=== PATIENT | female | born 1995 | race Two or more races ===

== ENCOUNTER 2019-11-01 09:21 | Outpatient (CLI) | payer BC, OTHER ==
[2019-11-01 10:04] LABS: APPEARANCE,URINE SLIGHTLY-CLOUDY; BILIRUBIN,URINE NEGATIVE (NEGATIVE); COLOR,URINE YELLOW; GLUCOSE, URINE NEGATIVE (NEGATIVE); KETONES,URINE NEGATIVE (NEGATIVE); LEUKOCYTE ESTERASE,URINE MODERATE (NEGATIVE); NITRITE,URINE NEGATIVE (NEGATIVE); PROTEIN,URINE 100 mg/dL (NEGATIVE); URINE SPECIFIC GRAVITY 1.013; UROBILINOGEN,URINE NEGATIVE mg/dL (<2.0)
[2019-11-01 10:19] LABS: UR PRO/CREAT RATIO RESULT 0.8 mg/mg (0.0-0.2); URINE CREATININE 117.4 mg/dL (16-327); URINE PROTEIN 90.2 mg/dL (<12)
[2019-11-01 10:29] LABS: URINE AMPHETAMINES SCREEN NEGATIVE; URINE BARBITURATES SCREEN NEGATIVE; URINE BENZODIAZEPINES SCREEN NEGATIVE; URINE COCAINE SCREEN NEGATIVE; URINE MARIJUANA (THC) SCREEN NEGATIVE; URINE METHADONE SCREEN NEGATIVE; URINE PHENCYCLIDINE SCREEN NEGATIVE
[2019-11-01 10:54] LABS: ABSOLUTE EOSINOPHILS # (AUTO) 0.3 10^3/uL (0.0-0.6); ABSOLUTE LYMPHOCYTES (AUTO) 1.3 10^3/uL (0.5-4.7); ABSOLUTE MONOCYTES (AUTO) 0.7 10^3/uL (0.1-1.4); ABSOLUTE NEUT (AUTO) 7.4 10^3/uL (1.7-8.2); BASOPHILS % (AUTO) 0.5 % (0-2); EOSINOPHILS % (AUTO) 3.4 % (0-6); HEMATOCRIT 36.3 % (36.0-47.0); HEMOGLOBIN 12.7 g/dL (12.0-15.5); LYMPHOCYTES % (AUTO) 13.4 % (13-45); MEAN CORPUSCULAR HEMOGLOBIN 30.4 pg (27.0-33.4); MEAN CORPUSCULAR VOLUME 87 fl (80-97); MONOCYTES % (AUTO) 7.2 % (3-13); PLATELET COUNT 242 10^3/uL (150-450); RED BLOOD COUNT 4.18 10^6/uL (3.72-5.28); SEGMENTED NEUTROPHILS % (AUTO) 75.5 % (42-78); TOTAL CELLS COUNTED % (AUTO) 100 %; WHITE BLOOD COUNT 9.8 10^3/uL (4.0-10.5)
[2019-11-01 11:06] LABS: ALBUMIN 2.8 g/dL (3.5-5.0); ALKALINE PHOSPHATASE 141 U/L (38-126); ANION GAP 5 (5-19); ASPARTATE AMINO TRANSFERASE 19 U/L (14-36); BILIRUBIN,TOTAL 0.3 mg/dL (0.2-1.3); BLOOD UREA NITROGEN 6 mg/dL (7-20); CALCIUM 8.5 mg/dL (8.4-10.2); CARBON DIOXIDE 20 mmol/L (22-30); CHLORIDE 108 mmol/L (98-107); GLUCOSE 80 mg/dL (75-110); POTASSIUM 3.8 mmol/L (3.6-5.0); TOTAL PROTEIN 5.8 g/dL (6.3-8.2); URIC ACID 4.7 mg/dL (2.5-6.2)
--- NOTE | 2019-11-01 11:38 | Non Stress Test Report ---
Non Stress Test Datetime Report Generated by CPN: 11/01/2019 11:38 DEMOGRAPHIC EGA NST: 33.1 INDICATION Indication for Study (NST) Other: IUP at 33.1; PreE workup VITAL SIGNS Temperature - NST: 98.1 Pulse - NST: 75 RESP - NST: 18 NBPSYS NST: 121 NBPDIA NST: 63 MONITORING Monitor Explained: Monitor Explained; Test Explained; Patient Verbalized Understanding Time on Monitor: 11/01/2019 09:46 Time off Monitor: 11/01/2019 11:30 NST Duration: 104 NST INTERVENTIONS NST Interventions: PO Hydration Physician Notified NST: P. Cancino, CNM BABY A: [id number] BABY A Movement : Present Contraction Frequency : 0 FHR Baseline : 140 Accelerations : 15X15 Decelerations : None Variability : Moderate 6-25bpm NST Review: Meets Criteria for Reactive NST NST Review and Verified By : Carissa Roblero RN NST Results: Reactive NST REPORT Report Trigger: Send Report
== END 2019-11-01 11:40 | disposition home or self-care (01) ==
LOC: LC 09:21
PROVIDERS: ATTEND Obstetrics & Gynecology Gynecology
DX: O12.13 Gestational proteinuria, third trimester (principal); Z3A.33 33 weeks gestation of pregnancy; Z02.83 Encounter for blood-alcohol and blood-drug test
CPT/HCPCS: 36415; 80053; 80307; 81001; 82570; 83615; 84156; 84550; 85025

== ENCOUNTER 2019-11-02 14:04 | Inpatient (IN) | payer BC, OTHER ==
[2019-11-02] MEDS ORDERED: ACETAMINOPHEN WITH CODEINE #3 TABLET ONE (14:30)
[2019-11-02] MEDS ORDERED: RINGERS SOLUTION,LACTATED 1,000 ML IV ONE (14:35)
[2019-11-02] MEDS ORDERED: BETAMET ACET/BETAMET NA INJ 6 MG/1 ML ONE (14:37)
[2019-11-02] MEDS ORDERED: ACETAMINOPHEN WITH CODEINE #3 TABLET PO PRN (14:37)
[2019-11-02 15:23] LABS: ABSOLUTE EOSINOPHILS # (AUTO) 0.2 10^3/uL (0.0-0.6); ABSOLUTE LYMPHOCYTES (AUTO) 1.3 10^3/uL (0.5-4.7); ABSOLUTE MONOCYTES (AUTO) 0.8 10^3/uL (0.1-1.4); ABSOLUTE NEUT (AUTO) 7.8 10^3/uL (1.7-8.2); BASOPHILS % (AUTO) 0.4 % (0-2); EOSINOPHILS % (AUTO) 2.3 % (0-6); HEMATOCRIT 36.7 % (36.0-47.0); HEMOGLOBIN 12.7 g/dL (12.0-15.5); LYMPHOCYTES % (AUTO) 12.8 % (13-45); MEAN CORPUSCULAR HEMOGLOBIN 30.1 pg (27.0-33.4); MEAN CORPUSCULAR HGB CONC 34.5 g/dL (32.0-36.0); MEAN CORPUSCULAR VOLUME 87 fl (80-97); MONOCYTES % (AUTO) 7.6 % (3-13); PLATELET COUNT 269 10^3/uL (150-450); SEGMENTED NEUTROPHILS % (AUTO) 76.9 % (42-78); TOTAL CELLS COUNTED % (AUTO) 100 %; WHITE BLOOD COUNT 10.1 10^3/uL (4.0-10.5)
[2019-11-02 15:29] LABS: URINE AMPHETAMINES SCREEN NEGATIVE; URINE BARBITURATES SCREEN NEGATIVE; URINE BENZODIAZEPINES SCREEN NEGATIVE; URINE COCAINE SCREEN NEGATIVE; URINE MARIJUANA (THC) SCREEN NEGATIVE; URINE METHADONE SCREEN NEGATIVE; URINE PHENCYCLIDINE SCREEN NEGATIVE
[2019-11-02 15:43] LABS: ALBUMIN 3.1 g/dL (3.5-5.0); ALKALINE PHOSPHATASE 160 U/L (38-126); ANION GAP 5 (5-19); ASPARTATE AMINO TRANSFERASE 19 U/L (14-36); BILIRUBIN,TOTAL 0.3 mg/dL (0.2-1.3); BLOOD UREA NITROGEN 7 mg/dL (7-20); CALCIUM 8.7 mg/dL (8.4-10.2); CARBON DIOXIDE 20 mmol/L (22-30); CHLORIDE 108 mmol/L (98-107); GLUCOSE 80 mg/dL (75-110); POTASSIUM 3.8 mmol/L (3.6-5.0); TOTAL PROTEIN 5.9 g/dL (6.3-8.2); URIC ACID 4.6 mg/dL (2.5-6.2)
--- NOTE | 2019-11-02 15:52 | Admission Physical ---
Datetime Report Generated by CPN: 11/02/2019 15:52 CURRENT ADMISSION Chief Complaint: Signs/Symptoms Gestational HTN; Sent from OB Office for Evaluation and Treatment - Please Specify Indication for Induction: Not Applicable Admit Impression : , Intrauterine ; No Active Labor; Observation/Evaluation; Obstetrical Complication Admit Plan: Admit to Unit; Observation/Evaluation Admit Plan- Other: sent from [facility], pt was seen yesterday on L_D, completed a 24*urine and f/u at the clinic today with c/o headache ALLERGIES Medication Allergies: No Medication Allergies: No Known Allergies (11/02/2019) Latex: No Latex Allergies Food Allergies: n/a Environmental Allergies: n/a OBSTETRICAL HISTORY EDC: 12/19/2019 00:00 : 1 Para: 0 Term: 0 : 0 SAB: 0 IAB: 0 Livin Cesareans: 0 VBACs: 0 Gestational Diabetes: No Rh Sensitization: No Incompetent Cervix: No GENEVIEVE: No Infertility: No ART Treatment: No Uterine Anomaly: No IUGR: No Hx Previous C/S: No Macrosomia: No Hx Loss/Stillborn: No PIH: No Hx : No Placenta Previa/Abruption: No Depression/PP Depression: No PTL/PROM: No Post Hemorrhage: No Current Procedures: Ultrasound Obstetrical History Comments: G1- current SEE RECORDS Alcohol: No Marijuana : No Cocaine: No Other Illicit Drugs: No Cigarettes: Never Smoker. [id number] MEDICAL HISTORY Diabetes: No Blood Transfusion: No Pulmonary Disease (Asthma, TB): No Breast Disease: No Hypertension: Yes Delivery Driver Surgery: No Heart Disease: No Hosp/Surgery: Yes Autoimmune Disorder: No Anesthetic Complications: No Kidney Disease: No Abnormal Pap Smear: No Neuro/Epilepsy: No Psychiatric Disorders: No Other Medical Diseases: No Hepatitis/Liver Disease: No Significant Family History: No Varicosities/Phlebitis: No Trauma/Violence : No Thyroid Dysfunction: No Medical History Comments: herniated disc, kidney stones INFECTIOUS HISTORY Gonorrhea: No Genital Herpes: No Chlamydia: No Tuberculosis: No Syphilis: No Hepatitis: No HIV/AIDS Exposure: No Rash or Viral Illness: No HPV: No PHYSICAL EXAM General: Normal HEENT: Deferred Neurologic: Normal Thyroid: Deferred Heart: Normal Lungs: Normal Breast: Deferred Back: Deferred Abdomen: Normal Genitourinary Exam: Deferred Extremities: Normal DTRs: Normal Pelvic Type: Adequate Vital Signs: Reviewed FETUS A EGA: 33.2 Monitoring: External US FHR- Baseline: 150 FHR Category: Category I Admit Comment: will evaluate for severe Pre-Eclampsia Headache resolved with Tylenol #3 Steroids started at 1440, plan to repeat in 24 hrs GBS collected Plan/orders per Dr. Stanley PLANS FOR LABOR AND DELIVERY Labor and Delivery: None Pain Management: Natural; Medications Feeding Preference: Both Benefit of Breast Feed Discussed: Yes Circumcision: Yes INFORMED CONSENT Assignment: Lara Stanley MD Signature: with User ID: [email or web address] : with User ID: [email or web address]
--- NOTE | 2019-11-02 16:25 | Non Stress Test Report ---
Non Stress Test Datetime Report Generated by CPN: 11/02/2019 16:25 DEMOGRAPHIC EGA NST: 33.2 INDICATION Indication for Study (NST) Other: pre-e MONITORING Monitor Explained: Monitor Explained; Test Explained; Patient Verbalized Understanding Time on Monitor: 11/02/2019 14:24 Time off Monitor: 11/02/2019 15:12 NST Duration: 48 NST INTERVENTIONS NST Interventions: None Physician Notified NST: K Perales CNM BABY A: [id number] BABY A Movement : Present Contraction Frequency : none FHR Baseline : 145 Accelerations : 15X15 Decelerations : None Variability : Moderate 6-25bpm NST Review: Meets Criteria for Reactive NST NST Review and Verified By : Jakub Carballo RN NST Results: Reactive NST REPORT Report Trigger: Send Report
--- NOTE | 2019-11-02 20:59 | Non Stress Test Report ---
Non Stress Test Datetime Report Generated by CPN: 11/02/2019 20:58 DEMOGRAPHIC EGA NST: 33.2 INDICATION Indication for Study (NST) Other: Admit for pre e work up MONITORING Time on Monitor: 11/02/2019 19:30 Time off Monitor: 11/02/2019 20:30 NST Duration: 60 NST INTERVENTIONS NST Interventions: None Physician Notified NST: Dr. Jaden BABY A Movement : Present Contraction Frequency : irritability FHR Baseline : 140 Accelerations : 15X15 Decelerations : None Variability : Moderate 6-25bpm NST Review: Meets Criteria for Reactive NST NST Review and Verified By : EJilek RN NST Results: Reactive NST REPORT Report Trigger: Send Report
--- NOTE | 2019-11-03 07:35 | Non Stress Test Report ---
Non Stress Test Datetime Report Generated by CPN: 11/03/2019 07:35 DEMOGRAPHIC EGA NST: 33.3 INDICATION Indication for Study (NST) Other: Provider Order - QShift NST VITAL SIGNS Temperature - NST: 98.3 Pulse - NST: 76 RESP - NST: 16 NBPSYS NST: 129 NBPDIA NST: 58 MONITORING Monitor Explained: Monitor Explained; Test Explained; Patient Verbalized Understanding Time on Monitor: 11/03/2019 07:08 Time off Monitor: 11/03/2019 07:28 NST Duration: 20 NST INTERVENTIONS NST Interventions: None Physician Notified NST: Dr. Perez BABY A Movement : Present Contraction Frequency : None FHR Baseline : 135 Accelerations : 15X15 Decelerations : None Variability : Moderate 6-25bpm NST Review: Meets Criteria for Reactive NST NST Review and Verified By : Josh Littlejohn RN NSArslan Results: Reactive NST REPORT Report Trigger: Send Report
[2019-11-03] MEDS ORDERED: BETAMET ACET/BETAMET NA INJ 6 MG/1 ML IM SCH ×2 (10:00→14:00)
[2019-11-03] MEDS ORDERED: BETAMET ACET/BETAMET NA INJ 6 MG/1 ML ONE (14:13)
--- NOTE | 2019-11-03 14:29 | Non Stress Test Report ---
Non Stress Test Datetime Report Generated by CPN: 11/03/2019 14:29 DEMOGRAPHIC EGA NST: 33.3 INDICATION Indication for Study (NST) Other: Provider Order VITAL SIGNS Temperature - NST: 98.4 Pulse - NST: 78 RESP - NST: 17 NBPSYS NST: 117 NBPDIA NST: 56 MONITORING Monitor Explained: Monitor Explained; Test Explained; Patient Verbalized Understanding Time on Monitor: 11/03/2019 13:38 Time off Monitor: 11/03/2019 14:05 NST Duration: 27 NST INTERVENTIONS NST Interventions: None Physician Notified NST: C.Cedeno,CNM BABY A Movement : Present Contraction Frequency : None FHR Baseline : 135 Accelerations : 15X15 Decelerations : None Variability : Moderate 6-25bpm NST Review: Meets Criteria for Reactive NST NST Review and Verified By : C. Fisher RN NST Results: Reactive NST COMMENTS NST Comments: CNM on unit NST REPORT Report Trigger: Send Report
--- NOTE | 2019-11-24 08:32 | PDOC DISCHARGE SUMMARY ---
Impression - Admit/DC Date/PCP Admission Date/Primary Care Provider: 11/02/19 14:18 LOC PENG MD Discharge Date: 12/04/19 - Assessment Summary: IUP third trim with pre-eclampsia seen and evaluated by Dr. Perez and discharged home after 23hr obs and steroids. Plan is to deliver at 37w or earlier with worsening pre-e. All instructions and teaching done at bedside by Dr. Perez. - Additional Information Resuscitation Status: Full Code Discharge Diet: As Tolerated, Regular - Pt to be discharged per Dr. Perez who evaluated the patient and reviewed warning s/s and follow up. Pt is steriod complete, will start twice weekly NSTs and plan is to deliver at 37wga or earlier prn. Discharge Activity: Activity As Tolerated, Balance Activity w/Rest Referrals: LOC PENG MD [Primary Care Provider] - Home Medications: 95/Iron Fum/Folic/Dha [ + Dha Combo Pack] 1 each PO DAILY 11/01/19 Labetalol HCl 100 mg PO BID 30 Days #60 tablet 11/06/19 Hospital Course 59. Maternal Morbidity (serious complications experinced by the mother ass ociated with labor and delivery: None of the above Results Laboratory Results: WBC 10.1 10^3/uL (4.0-10.5) 11/02/19 15: RBC 4.20 10^6/uL (3.72-5.28) 11/02/19 15:01 Hgb 12.7 g/dL (12.0-15.5) 11/02/19 15: Hct 36.7 % (36.0-47.0) 11/02/19 15: MCV 87 fl (80-97) 11/02/19 15:01 MCH 30.1 pg (27.0-33.4) 11/02/19 15: MCHC 34.5 g/dL (32.0-36.0) 11/02/19 15:01 RDW 14.0 % (11.5-14.0) 11/02/19 15:01 Plt Count 269 10^3/uL (150-450) 11/02/19 15:01 Lymph % (Auto) 12.8 % (13-45) L 11/02/19 15:01 [place] % (Auto) 7.6 % (3-13) 11/02/19 15:01 Eos % (Auto) 2.3 % (0-6) 11/02/19 15:01 Baso % (Auto) 0.4 % (0-2) 11/02/19 15:01 Absolute Neuts (auto) 7.8 10^3/uL (1.7-8.2) 11/02/19 15:01 Absolute Lymphs (auto) 1.3 10^3/uL (0.5-4.7) 11/02/19 15:01 Absolute Monos (auto) 0.8 10^3/uL (0.1-1.4) 11/02/19 15:01 Absolute Eos (auto) 0.2 10^3/uL (0.0-0.6) 11/02/19 15:01 Absolute Basos (auto) 0.0 10^3/uL (0.0-0.2) 11/02/19 15:01 Seg Neutrophils % 76.9 % (42-78) 11/02/19 15:01 Sodium 133.1 mmol/L (137-145) L 11/02/19 15:01 Potassium 3.8 mmol/L (3.6-5.0) 11/02/19 15:01 Chloride 108 mmol/L (98-107) H 11/02/19 15:01 Carbon Dioxide 20 mmol/L (22-30) L 11/02/19 15:01 Anion Gap 5 (5-19) 11/02/19 15:01 BUN 7 mg/dL (7-20) 11/02/19 15:01 Creatinine 0.52 mg/dL (0.52-1.25) 11/02/19 15:01 Est GFR ( Amer) > 60 (>60) 11/02/19 15:01 Est GFR (MDRD) Non-Af > 60 (>60) 11/02/19 15:01 Glucose 80 mg/dL (75-110) 11/02/19 15:01 Uric Acid 4.6 mg/dL (2.5-6.2) 11/02/19 15:01 Calcium 8.7 mg/dL (8.4-10.2) 11/02/19 15:01 Total Bilirubin 0.3 mg/dL (0.2-1.3) 11/02/19 15:01 Direct Bilirubin 0.0 mg/dL (0.0-0.4) 11/02/19 15:01 Neonat Total Bilirubin Not Reportable 11/02/19 15:01 Neonat Direct Bilirubin Not Reportable 11/02/19 15:01 Neonat Indirect Bili Not Reportable 11/02/19 15:01 AST 19 U/L (14-36) 11/02/19 15:01 ALT 10 U/L (<35) 11/02/19 15:01 Alkaline Phosphatase 160 U/L (38-126) H 11/02/19 15:01 Lactate Dehydrogenase 178 U/L (120-246) 11/02/19 15:01 Total Protein 5.9 g/dL (6.3-8.2) L 11/02/19 15:01 Albumin 3.1 g/dL (3.5-5.0) L 11/02/19 15:01 Urine Opiates Screen NEGATIVE 11/02/19 14:34 Urine Methadone Screen NEGATIVE 11/02/19 14:34 Ur Barbiturates Screen NEGATIVE 11/02/19 14:34 Ur Phencyclidine Scrn NEGATIVE 11/02/19 14:34 Ur Amphetamines Screen NEGATIVE 11/02/19 14:34 U Benzodiazepines Scrn NEGATIVE 11/02/19 14:34 Urine Cocaine Screen NEGATIVE 11/02/19 14:34 U Marijuana (THC) Screen NEGATIVE 11/02/19 14:34 RPR NONREACTIVE (NONREACTIVE) 11/02/19 15:01 Blood Type O POSITIVE 11/02/19 15:01 Antibody Screen NEGATIVE 11/02/19 15:01
== END 2019-11-03 14:28 | disposition home or self-care (01) | DRG 833 ==
LOC: LC 14:04 → LR 14:18
PROVIDERS: ADMIT Obstetrics & Gynecology; ATTEND Obstetrics & Gynecology
DX: O14.03 Mild to moderate pre-eclampsia, third trimester (principal); Z3A.33 33 weeks gestation of pregnancy; Z11.59 Encounter for screening for other viral diseases
CPT/HCPCS: 36415; 80053; 80307; 83615; 84550; 85025; 86592; 86850; 86900; 86901; 87081; J0702

== ENCOUNTER 2019-11-06 05:56 | Emergency (ER) | payer BC, OTHER ==
[2019-11-06] MEDS: MAGNESIUM SULFATE/D5W 1 GM/100 ML RTUPB IV SCH ×2 (07:54→09:05)
[2019-11-06 08:11] LABS: ABSOLUTE LYMPHOCYTES (AUTO) 1.4 10^3/uL (0.5-4.7); ABSOLUTE MONOCYTES (AUTO) 1.3 10^3/uL (0.1-1.4); ABSOLUTE NEUT (AUTO) 12.4 10^3/uL (1.7-8.2); BASOPHILS % (AUTO) 0.1 % (0-2); EOSINOPHILS % (AUTO) 0.2 % (0-6); HEMATOCRIT 35.8 % (36.0-47.0); HEMOGLOBIN 12.3 g/dL (12.0-15.5); LYMPHOCYTES % (AUTO) 9.5 % (13-45); MEAN CORPUSCULAR HEMOGLOBIN 30.3 pg (27.0-33.4); MEAN CORPUSCULAR HGB CONC 34.4 g/dL (32.0-36.0); MEAN CORPUSCULAR VOLUME 88 fl (80-97); MONOCYTES % (AUTO) 8.6 % (3-13); PLATELET COUNT 249 10^3/uL (150-450); RED BLOOD COUNT 4.07 10^6/uL (3.72-5.28); RED CELL DISTRIBUTION WIDTH 14.1 % (11.5-14.0); SEGMENTED NEUTROPHILS % (AUTO) 81.6 % (42-78); TOTAL CELLS COUNTED % (AUTO) 100 %; WHITE BLOOD COUNT 15.2 10^3/uL (4.0-10.5)
[2019-11-06 08:18] LABS: ALKALINE PHOSPHATASE 167 U/L (38-126); ASPARTATE AMINO TRANSFERASE 19 U/L (14-36); BILIRUBIN,TOTAL 0.3 mg/dL (0.2-1.3); BLOOD UREA NITROGEN 7 mg/dL (7-20); CALCIUM 8.8 mg/dL (8.4-10.2); CHLORIDE 109 mmol/L (98-107); GLUCOSE 82 mg/dL (75-110); POTASSIUM 3.9 mmol/L (3.6-5.0); TOTAL PROTEIN 5.9 g/dL (6.3-8.2)
[2019-11-06 08:23] LABS: CARBON DIOXIDE 22 mmol/L (22-30)
[2019-11-06 08:25] LABS: ANION GAP 3 (5-19)
[2019-11-06 08:54] LABS: APPEARANCE,URINE SLIGHTLY-CLOUDY; BILIRUBIN,URINE NEGATIVE (NEGATIVE); COLOR,URINE YELLOW; GLUCOSE, URINE NEGATIVE (NEGATIVE); KETONES,URINE NEGATIVE (NEGATIVE); LEUKOCYTE ESTERASE,URINE NEGATIVE (NEGATIVE); NITRITE,URINE NEGATIVE (NEGATIVE); PROTEIN,URINE >=500 mg/dL (NEGATIVE); URINE SPECIFIC GRAVITY 1.012; UROBILINOGEN,URINE NEGATIVE mg/dL (<2.0)
[2019-11-06] MEDS ORDERED: LABETALOL HCL 200 MG TABLET PO ONE (10:46)
--- NOTE | 2019-11-06 12:03 | ER Document Report ---
Entered by MONY ZAYAS SCRIBE 11/06/19 0740 Acting as scribe for:KANDIS CHATMAN MD ED General - General Chief Complaint: Shortness Of Breath Stated Complaint: 33 WEEKS PREG/SHORTNESS OF BREATH/HIGH BLOOD PRESS Time Seen by Provider: 11/06/19 07:29 Primary Care Provider: LOC PENG MD [ACTIVE STAFF] - Follow up as needed Information source: Patient Notes: This 24 year old female patient presents to the emergency department today with complaints of shortness of breath. Patient states she is x34 weeks and is A0, with this being her first . Patient states she has visited OB x3 days in a row and visited this morning with shortness of breath, then was sent to the ED. Patient states she recently traveled to [place] to visit her mom and has not quarantined. Patient states she is not on any medication other than a steroid, due to recently being told she has pre-eclampsia. Patient reports HTN during her and frequent urination. Denies any headaches, vision changes, abdominal pain, or N/V. - Related Data Allergies/Adverse Reactions: No Known Allergies Allergy (Verified 11/02/19 14:13) Home Medications: Past Medical History - General Information source: Patient - Social History Smoking Status: Never Smoker Cigarette use (# per day): No Frequency of alcohol use: None Family History: Reviewed & Not Pertinent Surgical Hx: Negative Review of Systems - Review of Systems Constitutional: No symptoms reported EENT: See HPI, Other - normal vision Cardiovascular: See HPI Respiratory: See HPI, Short of breath Gastrointestinal: See HPI. denies: Abdominal pain, Nausea, Vomiting Genitourinary: See HPI, Frequency Female Genitourinary: See HPI, Musculoskeletal: No symptoms reported Skin: No symptoms reported Hematologic/Lymphatic: No symptoms reported Neurological/Psychological: See HPI. denies: Headaches -: Yes All other systems reviewed and negative Physical Exam - Vital signs Vitals: Temp Resp BP 98.3 F 18 172/97 H 11/06/19 06:04 11/06/19 06:04 11/06/19 06:04 - General General appearance: Alert, Anxious - HEENT Head: Normocephalic, Atraumatic Eyes: Normal Pupils: PERRL - Respiratory Respiratory status: No respiratory distress Chest status: Nontender Breath sounds: Normal Chest palpation: Normal Notes: 100% oxygen saturation on room air. - Cardiovascular Rhythm: Regular Heart sounds: Normal auscultation Murmur: No Notes: Blood pressure is 153/95 during exam. - Abdominal Inspection: Gravid female Bowel sounds: Normal Tenderness: Nontender - Extremities Notes: Normal inspection of bilateral upper extremities. Edema of bilateral lower extremities. Normal ROM. - Neurological Neuro grossly intact: Yes Cognition: Normal Orientation: AAOx4 Speech: Normal - Psychological Associated symptoms: Normal affect, Anxious - Skin Skin Temperature: Warm Skin Moisture: Dry Skin Color: Normal Course - Re-evaluation Re-evalutation: 11/06/19 11:58 Patient resting comfortably not showing any distress at this time. - Vital Signs Vital signs: Temp Pulse Resp BP Pulse Ox 98.4 F 19 142/88 H 99 11/06/19 07:14 11/06/19 11:31 11/06/19 11:31 11/06/19 11:31 11/06/19 11:58 Vital signs stable blood pressure is 142/88 afebrile respiratory rate 19 pulse ox 99% patient is in her third trimester of her and has developed proteinuria leg edema and hypertension. There is been no headache no photophobia and no twitching or seizure-like activity at this time. Because of the blood pressure elevation I have elected to place patient on labetalol 100 mg twice a day. - Laboratory Result Diagrams: 11/06/19 07:30 11/06/19 07:30 Laboratory results interpreted by me: 11/06/19 11/06/19 11/06/19 07:30 07:30 07:30 WBC 15.2 H Hct 35.8 L RDW 14.1 H Lymph % (Auto) 9.5 L Absolute Neuts (auto) 12.4 H Seg Neutrophils % 81.6 H Sodium 134.3 L Chloride 109 H Anion Gap 3 L Alkaline Phosphatase 167 H Total Protein 5.9 L Albumin 3.0 L Urine Protein >=500 H Laboratories show an elevated white blood cell count of 15.2 and protein greater than 500. Otherwise no other acute process patient does not seem to have any evidence for an infection at this time. Discharge - Discharge Clinical Impression: Pre-eclampsia in third trimester, Hypertension Condition: Stable Disposition: HOME, SELF-CARE Additional Instructions: Hypertension in Normally, blood pressure is a bit lower when you're . High blood pr essure (hypertension) during can be a sign of preeclampsia (toxemia). Preeclampsia is a serious condition, with danger to both mother and baby. In preeclampsia, babies are born smaller and are more likely to be premature. The chance of stillbirth is higher. Mothers can develop seizures, hemolysis (bursting of blood cells in the circulation), blood clotting, abdominal pain, shortness of breath, and liver disease. The primary treatment for hypertension in is bedrest. You'll need to be checked frequently. When preeclampsia is severe, hospitalization may be required. Return or call the doctor immediately if you develop severe headache, abdominal pain, severe swelling, repeated vomiting, vaginal bleeding, or shortness of breath. Keep your appointment you have with the [facility] on Friday. Return to the emergency department there is any problems. You have been placed on a blood pressure medicine that is safe during and is called labetalol you have been started on the initial dose of 100 mg twice a day. Prescriptions: Labetalol HCl 100 mg PO BID 30 Days #60 tablet Referrals: LOC PENG MD [ACTIVE STAFF] - Follow up as needed I personally performed the services described in the documentation, reviewed and edited the documentation which was dictated to the scribe in my presence, and it accurately records my words and actions.
[2019-11-06 12:10] VITALS: BP 140/86
== END 2019-11-06 12:10 | disposition home or self-care (01) ==
LOC: ER 05:56
DX: O14.93 Unspecified pre-eclampsia, third trimester (principal); O16.3 Unspecified maternal hypertension, third trimester; O26.893 Other specified pregnancy related conditions, third trimester; R35.0 Frequency of micturition; R06.02 Shortness of breath; Z3A.34 34 weeks gestation of pregnancy
CPT/HCPCS: 99284; 96365; 96366; 36415; 83735; 85025; 80053; 81001; J3475

== ENCOUNTER 2019-11-08 09:57 | Outpatient (CLI) | payer BC, OTHER ==
[2019-11-08 10:55] LABS: ABSOLUTE LYMPHOCYTES (AUTO) 1.3 10^3/uL (0.5-4.7); ABSOLUTE MONOCYTES (AUTO) 1.2 10^3/uL (0.1-1.4); ABSOLUTE NEUT (AUTO) 10.5 10^3/uL (1.7-8.2); BASOPHILS % (AUTO) 0.1 % (0-2); EOSINOPHILS % (AUTO) 0.3 % (0-6); HEMATOCRIT 34.4 % (36.0-47.0); HEMOGLOBIN 11.8 g/dL (12.0-15.5); LYMPHOCYTES % (AUTO) 9.7 % (13-45); MEAN CORPUSCULAR HEMOGLOBIN 30.2 pg (27.0-33.4); MEAN CORPUSCULAR HGB CONC 34.3 g/dL (32.0-36.0); MEAN CORPUSCULAR VOLUME 88 fl (80-97); MONOCYTES % (AUTO) 9.2 % (3-13); PLATELET COUNT 237 10^3/uL (150-450); RED BLOOD COUNT 3.91 10^6/uL (3.72-5.28); RED CELL DISTRIBUTION WIDTH 14.1 % (11.5-14.0); SEGMENTED NEUTROPHILS % (AUTO) 80.7 % (42-78); TOTAL CELLS COUNTED % (AUTO) 100 %
[2019-11-08 11:08] LABS: APPEARANCE,URINE SLIGHTLY-CLOUDY; BILIRUBIN,URINE NEGATIVE (NEGATIVE); COLOR,URINE YELLOW; GLUCOSE, URINE NEGATIVE (NEGATIVE); KETONES,URINE NEGATIVE (NEGATIVE); LEUKOCYTE ESTERASE,URINE MODERATE (NEGATIVE); NITRITE,URINE NEGATIVE (NEGATIVE); PROTEIN,URINE >=500 mg/dL (NEGATIVE); URINE SPECIFIC GRAVITY 1.016; UROBILINOGEN,URINE NEGATIVE mg/dL (<2.0)
[2019-11-08 11:15] LABS: ALBUMIN 2.6 g/dL (3.5-5.0); ALKALINE PHOSPHATASE 149 U/L (38-126); ASPARTATE AMINO TRANSFERASE 16 U/L (14-36); BILIRUBIN,TOTAL 0.2 mg/dL (0.2-1.3); BLOOD UREA NITROGEN 7 mg/dL (7-20); CARBON DIOXIDE 22 mmol/L (22-30); CHLORIDE 107 mmol/L (98-107); POTASSIUM 3.7 mmol/L (3.6-5.0); TOTAL PROTEIN 5.2 g/dL (6.3-8.2); URIC ACID 4.9 mg/dL (2.5-6.2)
[2019-11-08 11:18] LABS: GLUCOSE 60 mg/dL (75-110)
[2019-11-08 11:22] LABS: URINE AMPHETAMINES SCREEN NEGATIVE; URINE BARBITURATES SCREEN NEGATIVE; URINE BENZODIAZEPINES SCREEN NEGATIVE; URINE COCAINE SCREEN NEGATIVE; URINE MARIJUANA (THC) SCREEN NEGATIVE; URINE METHADONE SCREEN NEGATIVE; URINE PHENCYCLIDINE SCREEN NEGATIVE
[2019-11-08 11:23] LABS: ANION GAP 3 (5-19)
--- NOTE | 2019-11-08 13:23 | RADIOLOGY REPORT (SQ) ---
EXAM DESCRIPTION: CTA CHEST IMAGES COMPLETED DATE/TIME: 11/08/2019 1:07 pm REASON FOR STUDY: Shortness of breath 34.1 wks COMPARISON: None. TECHNIQUE: CT scan of the chest performed using helical scanning technique with dynamic intravenous contrast injection. Images reviewed with lung, soft tissue and bone windows. Reconstructed coronal and sagittal MPR images reviewed. Additional 3 dimensional post-processing performed to develop Maximal Intensity Projection images (OK P). All images stored on PACS. All CT scanners at this facility use dose modulation, iterative reconstruction, and/or weight based d osing when appropriate to reduce radiation dose to as low as reasonably achievable (ALARA). [facility]: Dose Right [facility]: CareDose [facility]: Dose Right [facility]: Teradose 4D [facility]: NeuMoDx Molecular CONTRAST TYPE AND DOSE: contrast/concentration: Isovue 350.00 mmol/ml; Total Contrast Delivered: 71. 0 ml; Total Saline Delivered: 65.0 ml Contrast bolus optimized for the pulmonary arteries. Not diagnostic for the aorta. RENAL FUNCTION: BUN 7, creatinine 0.56 RADIATION DOSE: CT Rad equipment meets quality standard of care and radiation dose reduction techniq ues were employed. CTDIvol: 1.9 - 15.4 mGy. DLP: 492 mGy-cm. . LIMITATIONS: None. FINDINGS: LUNGS AND PLEURA: There is a small left pleural effusion. Minimal left basilar atelectasi s. No consolidation. AORTA AND GREAT VESSELS: No aneurysm. Contrast bolus not optimized for the aorta. HEART: No pericardial effusion. No significant coronary artery calcifications. PULMONARY ARTERIES: No emboli visualized in the main pulmonary arteries or the segmental branches. HILAR AND MEDIASTINAL STRUCTURES: No identified masses or abnormal nodes. HARDWARE: None in the chest. UPPER ABDOMEN: No significant findings. Limited exam. THYROID AND OTHER SOFT TISSUES: No masses. No adenopathy. BONES: No acute or significant finding. 3D MIPS: Confirm above findings. OTHER: No other significant finding. IMPRESSION: No pulmonary emboli. Small left effusion and minimal left basilar atelectasis. COMMENT: Quality ID # [id number]: Final reports with documentation of one or more dose reduction techniques (e.g., Automated exposure control, adjustment of the mA and/or kV according to patient size, use of iterative reconstruction technique) TECHNICAL DOCUMENTATION: JOB ID: [id number] 2010 [employer]- All Rights Reserved Reading location - IP/workstation name: [email or web address]
--- NOTE | 2019-11-08 13:53 | Non Stress Test Report ---
Non Stress Test Datetime Report Generated by CPN: 11/08/2019 13:53 DEMOGRAPHIC Test Number: 5 EGA NST: 34.1 INDICATION Indication for Study (NST) Other: pre eclampsia VITAL SIGNS Temperature - NST: 98.7 Pulse - NST: 81 RESP - NST: 20 NBPSYS NST: 127 NBPDIA NST: 68 MONITORING Monitor Explained: Monitor Explained; Test Explained; Patient Verbalized Understanding Time on Monitor: 11/08/2019 10:08 Time off Monitor: 11/08/2019 12:22 NST Duration: 134 NST INTERVENTIONS NST Interventions: PO Hydration; Reposition Patient BABY A: [id number] BABY A Movement : Present Contraction Frequency : 0 FHR Baseline : 135 Accelerations : 15X15 Decelerations : None Variability : Moderate 6-25bpm NST Review: Meets Criteria for Reactive NST NST Review and Verified By : Carissa Roblero RN NST Results: Reactive NST REPORT Report Trigger: Send Report
--- NOTE | 2019-11-08 21:37 | EKG REPORT ---
SEVERITY:- BORDERLINE ECG - SINUS RHYTHM BORDERLINE T ABNORMALITIES, ANTERIOR LEADS : Confirmed by: Thomas Kohler 08-Nov-2019 21:36:38
== END 2019-11-08 14:04 | disposition home or self-care (01) ==
LOC: LC 09:57
PROVIDERS: ATTEND Obstetrics & Gynecology
DX: O14.93 Unspecified pre-eclampsia, third trimester (principal); Z02.83 Encounter for blood-alcohol and blood-drug test; Z3A.34 34 weeks gestation of pregnancy
CPT/HCPCS: 36415; 71275; 80053; 80307; 81001; 83615; 84550; 85025; 87086; 93005; 93010

== ENCOUNTER 2019-11-15 14:57 | Inpatient (IN) | payer BC, OTHER ==
[2019-11-15 15:45] LABS: HEMATOCRIT 38.3 % (36.0-47.0); HEMOGLOBIN 13.3 g/dL (12.0-15.5); MEAN CORPUSCULAR HEMOGLOBIN 30.5 pg (27.0-33.4); MEAN CORPUSCULAR HGB CONC 34.6 g/dL (32.0-36.0); MEAN CORPUSCULAR VOLUME 88 fl (80-97); PLATELET COUNT 286 10^3/uL (150-450); RED BLOOD COUNT 4.35 10^6/uL (3.72-5.28); RED CELL DISTRIBUTION WIDTH 14.5 % (11.5-14.0); WHITE BLOOD COUNT 10.2 10^3/uL (4.0-10.5)
[2019-11-15 15:55] LABS: APPEARANCE,URINE CLEAR; BILIRUBIN,URINE NEGATIVE (NEGATIVE); COLOR,URINE YELLOW; GLUCOSE, URINE NEGATIVE (NEGATIVE); KETONES,URINE NEGATIVE (NEGATIVE); LEUKOCYTE ESTERASE,URINE SMALL (NEGATIVE); NITRITE,URINE NEGATIVE (NEGATIVE); PROTEIN,URINE >=500 mg/dL (NEGATIVE); URINE SPECIFIC GRAVITY 1.015; UROBILINOGEN,URINE NEGATIVE mg/dL (<2.0)
[2019-11-15 16:06] LABS: ALKALINE PHOSPHATASE 204 U/L (38-126); ANION GAP 6 (5-19); ASPARTATE AMINO TRANSFERASE 23 U/L (14-36); BILIRUBIN,TOTAL 0.3 mg/dL (0.2-1.3); BLOOD UREA NITROGEN 8 mg/dL (7-20); CARBON DIOXIDE 22 mmol/L (22-30); CHLORIDE 105 mmol/L (98-107); GLUCOSE 81 mg/dL (75-110); POTASSIUM 4.2 mmol/L (3.6-5.0); URIC ACID 4.7 mg/dL (2.5-6.2)
[2019-11-15 16:42] LABS: URINE CREATININE 94.4 mg/dL (16-327)
[2019-11-15 16:54] LABS: URINE AMPHETAMINES SCREEN NEGATIVE; URINE BARBITURATES SCREEN NEGATIVE; URINE BENZODIAZEPINES SCREEN NEGATIVE; URINE COCAINE SCREEN NEGATIVE; URINE MARIJUANA (THC) SCREEN NEGATIVE; URINE METHADONE SCREEN NEGATIVE; URINE PHENCYCLIDINE SCREEN NEGATIVE
--- NOTE | 2019-11-15 16:54 | Admission Physical ---
Datetime Report Generated by CPN: 11/15/2019 16:54 CURRENT ADMISSION Chief Complaint: Other Chief Complaint Other: SOB Preeclampsia Indication for Induction: Not Applicable Admit Impression : Observation/Evaluation; Obstetrical Complication; Medical Complication Admit Plan: Admit to Unit; Observation/Evaluation Admit Plan- Other: Cardiology consult ALLERGIES Medication Allergies: No Medication Allergies: No Known Allergies (11/02/2019) Latex: No Latex Allergies Food Allergies: n/a Environmental Allergies: n/a OBSTETRICAL HISTORY EDC: 12/19/2019 00:00 : 1 Para: 0 Term: 0 : 0 SAB: 0 IAB: 0 Livin Cesareans: 0 VBACs: 0 Gestational Diabetes: No Rh Sensitization: No Incompetent Cervix: No GENEVIEVE: No Infertility: No ART Treatment: No Uterine Anomaly: No IUGR: No Hx Previous C/S: No Macrosomia: No Hx Loss/Stillborn: No PIH: No Hx : No Placenta Previa/Abruption: No Depression/PP Depression: No PTL/PROM: No Post Hemorrhage: No Current Procedures: Ultrasound Obstetrical History Comments: G1- current SEE RECORDS Alcohol: No Marijuana : No Cocaine: No Other Illicit Drugs: No Cigarettes: Never Smoker. 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 Heart Disease: No Hosp/Surgery: Yes Autoimmune Disorder: No Anesthetic Complications: No Kidney Disease: No Abnormal Pap Smear: No Neuro/Epilepsy: No Psychiatric Disorders: No Other Medical Diseases: No Hepatitis/Liver Disease: No Significant Family History: No Varicosities/Phlebitis: No Trauma/Violence : No Thyroid Dysfunction: No Medical History Comments: herniated disc, kidney stones INFECTIOUS HISTORY Gonorrhea: No Genital Herpes: No Chlamydia: No Tuberculosis: No Syphilis: No Hepatitis: No HIV/AIDS Exposure: No Rash or Viral Illness: No HPV: No PHYSICAL EXAM General: Normal HEENT: Normal Neurologic: Normal Thyroid: Normal Heart: Normal Lungs: Abnormal Breast: Deferred Back: Normal Abdomen: Normal Genitourinary Exam: Deferred Extremities: Abnormal DTRs: Normal Pelvic Type: Adequate Physical Exam Comments: Very swollen extremities noted. Pt is short of breath with exertion. Vital Signs: Reviewed MEMBRANES Pooling: Negative Membranes: Intact FETUS A EGA: 35.1 Monitoring: External US FHR- Baseline: 150 FHR Category: Category I Presentation: Vertex Admit Comment: Will go ahead get the cardiac echo. She has seen Dr Garcia and he feels she is fluid overloaded. He agrees to read the echo and asks to consult the chemical economist senior wind energy consultant. PLANS FOR LABOR AND DELIVERY Labor and Delivery: None Pain Management: Natural; Medications Feeding Preference: Both Benefit of Breast Feed Discussed: Yes Circumcision: Yes INFORMED CONSENT Assignment: Lara Stanley MD Signature: with User ID: Connie : with User ID: Connie
[2019-11-15 17:15] LABS: UR PRO/CREAT RATIO RESULT 9.5 mg/mg (0.0-0.2); URINE PROTEIN 900.1 mg/dL (<12)
--- NOTE | 2019-11-15 18:45 | XCELERA REPORT ---
[address] [address] Transthoracic Echocardiogram Report Name: ANDREW JUAREZ Age: 24 yrs Gender: Female : 1995 Patient Status: Preadmit Patient Location: [facility] Study Date: 11/15/2019 05:28 PM Height: 59 in Weight: 215 lb BSA: 1.9 m2 Procedure: A complete two-dimensional transthoracic echocardiogram was performed (2D, M-mode, spectral and color flow Doppler). The study was technically difficult with many images being suboptimal in quality. Reason For Study: shortness of breath Previous Evaluation: No previous studies were available. History: Shortness of breath. . Ordering Physician: JARRET LÓPEZ Performed By: Eleanor Turcios Interpretation Summary Left ventricular systolic function is low normal. The Ejection Fraction estimate is 50-55% The right ventricle is normal in size and function. There is a trace amount of mitral regurgitation There is no aortic valve stenosis There is a trace amount of tricuspid regurgitation Small pericardial effusion. There are no echocardiographic indications of cardiac tamponade. Doppler measurements suggest impaired left ventricular relaxation, which is associated with grade I/IV or mild diastolic dysfunction MMode/2D Measurements & Calculations RVDd: 2.6 cm LVIDd: 5.3 cm FS: 38.5 % Ao root diam: 2.8 cm IVSd: 1.1 cm LVIDs: 3.3 cm EDV(Teich): 135.1 ml Ao root area: 6.1 cm2 LVPWd: 1.1 cm ESV(Teich): 42.8 ml LA dimension: 4.2 cm EF(Teich): 68.3 % Doppler Measurements & Calculations MV E max jessie: MV P1/2t max jessie: Ao V2 max: LV V1 max P.0 cm/sec 61.4 cm/sec 130.9 cm/sec 4.5 mmHg MV A max jessie: MV P1/2t: 105.6 msec Ao max PG: LV V1 max: 82.5 cm/sec MVA(P1/2t): 2.1 cm2 6.8 mmHg 105.7 cm/sec MV E/A: 0.86 MV dec slope: 170.1 cm/sec2 MV dec time: 0.21 sec PA V2 max: MV P1/2t-pr_phl: 99.7 cm/sec 105.6 msec PA max P.0 mmHg Left Ventricle The left ventricle is normal in size. There is mild to moderate concentric left ventricular hypertrophy. Left ventricular systolic function is low normal. The Ejection Fraction estimate is 50-55%. Doppler measurements suggest impaired left ventricular relaxation, which is associated with grade I/IV or mild diastolic dysfunction. Regional wall motion abnormalities cannot be excluded due to limited visualization. Right Ventricle The right ventricle is normal in size and function. Atria The right atrium is normal. The left atrium is mildly dilated. The interatrial septum is intact with no evidence for an atrial septal defect. Mitral Valve The mitral valve is grossly normal. There is no evidence of mitral valve prolapse. There is no mitral valve stenosis. There is a trace amount of mitral regurgitation. Aortic Valve The aortic valve opens well. The aortic valve is not well visualized secondary to technical limitations. There is no aortic valve stenosis. No aortic regurgitation is present. Tricuspid Valve The tricuspid valve is not well visualized, but is grossly normal. There is a trace amount of tricuspid regurgitation. Tricuspid regurgitation jet envelope not well defined to measure RV systolic pressure accurately. Pulmonic Valve The pulmonic valve is not well visualized. There is no pulmonic valvular stenosis. There is a trace amount of pulmonic regurgitation. Great Vessels The aortic root is normal size. The aortic root is not well visualized. The inferior vena cava appeared normal and decreased > 50% with respiration (RAP 5-10 mmHg). Effusions Small pericardial effusion. There are no echocardiographic indications of cardiac tamponade. : JARRET LÓPEZ Anil
--- NOTE | 2019-11-15 19:24 | PDOC CONSULTATION ---
Consultation Consult Date: 11/15/19 Attending physician:: JARRET LÓPEZ Provider Consulted: LUCIA ALMANZAR Consult reason:: Dyspnea History of Present Illness Admission Date/PCP: JARRET LÓPEZ MD History of Present Illness: ANDREW JUAREZ is a 24 year old female, non-smoker, without family history of premature coronary artery disease, with history of preeclampsia during this , currently at 35 weeks of gestation who is consulted to our service for evaluation of dyspnea. The patient states that she noticed shortness of breath approximately 2 weeks ago and since then had been to the hospital at least on 3 different occasions. She has also noticed some palpitations and racing heart but denies orthopnea, PND, chest pain, diaphoresis, syncope and presyncope. She does endorse some lower extremity edema that sometimes is present and sometimes is not. She has not noticed any triggers for it. Physical exam on 11/15/2019: GENERAL: Pleasant and conversational. Oriented x3 with normal mood. Not in acute distress. Well groomed and well developed. HEENT: Normocephalic, atraumatic. Pupils equal. Sclerae anicteric. Oropharynx moist. NECK: No JVD. No carotid bruits. LUNGS: Clear to auscultation bilaterally. Normal respiratory effort without the use of accessory muscles or intercostal retractions. CARDIOVASCULAR: Regular rate and rhythm, normal S1 and S2 without murmurs, rubs, or gallops. PMI not displaced. ABDOMEN: Gravid. Difficult to assess for organomegaly. EXTREMITIES: Trace pitting edema bilaterally, no cyanosis, no clubbing. +2 pulses femoral and pedal pulses bilaterally. SKIN: No lesions or rashes. MUSCULOSKELETAL: No chest tenderness to palpation. NEUROLOGIC: Nonfocal. No gross sensory or motor deficits bilateral upper or lower extremities. Social History Information Source: Patient Lives with: Spouse/Significant other Smoking Status: Never Smoker Electronic Cigarette use?: No Frequency of Alcohol Use: None Family History Family History: Reviewed & Not Pertinent Parental Family History Reviewed: Yes Children Family History Reviewed: Yes Sibling(s) Family History Reviewed.: Yes Medication/Allergy Home Medications: 95/Iron Fum/Folic/Dha [ + Dha Combo Pack] 1 each PO DAILY 11/01/19 Labetalol HCl 100 mg PO BID 30 Days #60 tablet 11/06/19 Allergies/Adverse Reactions: No Known Allergies Allergy (Verified 11/15/19 18:50) Physical Exam Vital Signs: Intake & Output 11/14/19 11/15/19 11/16/19 06:59 06:59 06:59 Weight 97.5 kg Results Laboratory Results: 11/15/19 15:30 11/15/19 15:30 11/15/19 11/15/19 11/15/19 15:21 15:30 15:30 WBC 10.2 RBC 4.35 Hgb 13.3 Hct 38.3 MCV 88 MCH 30.5 MCHC 34.6 RDW 14.5 H Plt Count 286 Sodium 133.4 L Potassium 4.2 Chloride 105 Carbon Dioxide 22 Anion Gap 6 BUN 8 Creatinine 0.66 Est GFR ( Amer) > 60 Glucose 81 Uric Acid 4.7 Calcium 9.0 Total Bilirubin 0.3 AST 23 Alkaline Phosphatase 204 H Total Protein 6.0 L Albumin 3.0 L Urine Color YELLOW Urine Appearance CLEAR Urine pH 7.0 Ur Specific [place] 1.015 Urine Protein >=500 H Urine Glucose (UA) NEGATIVE Urine Ketones NEGATIVE Urine Blood NEGATIVE Urine Nitrite NEGATIVE Ur Leukocyte Esterase SMALL H Urine WBC (Auto) 10 Urine RBC (Auto) 1 Impressions: 11/15/19 15:30 11/15/19 15:30 MCV 88 fl (80-97) 11/15/19 15:30 MCH 30.5 pg (27.0-33.4) 11/15/19 15:30 MCHC 34.6 g/dL (32.0-36.0) 11/15/19 15:30 RDW 14.5 % (11.5-14.0) H 11/15/19 15:30 Chloride 105 mmol/L (98-107) 11/15/19 15:30 Carbon Dioxide 22 mmol/L (22-30) 11/15/19 15:30 Anion Gap 6 (5-19) 11/15/19 15:30 Est GFR ( Amer) > 60 (>60) 11/15/19 15:30 Glucose 81 mg/dL (75-110) 11/15/19 15:30 Uric Acid 4.7 mg/dL (2.5-6.2) 11/15/19 15:30 Calcium 9.0 mg/dL (8.4-10.2) 11/15/19 15:30 Total Bilirubin 0.3 mg/dL (0.2-1.3) 11/15/19 15:30 AST 23 U/L (14-36) 11/15/19 15:30 Alkaline Phosphatase 204 U/L (38-126) H 11/15/19 15:30 Total Protein 6.0 g/dL (6.3-8.2) L 11/15/19 15:30 Albumin 3.0 g/dL (3.5-5.0) L 11/15/19 15:30 Urine Color YELLOW 11/15/19 15:21 Urine Appearance CLEAR 11/15/19 15:21 Urine pH 7.0 (5.0-9.0) 11/15/19 15:21 Ur Specific [place] 1.015 11/15/19 15:21 Urine Protein >=500 mg/dL (NEGATIVE) H 11/15/19 15:21 Urine Glucose (UA) NEGATIVE mg/dL (NEGATIVE) 11/15/19 15:21 Urine Ketones NEGATIVE mg/dL (NEGATIVE) 11/15/19 15:21 Urine Blood NEGATIVE (NEGATIVE) 11/15/19 15:21 Urine Nitrite NEGATIVE (NEGATIVE) 11/15/19 15:21 Ur Leukocyte Esterase SMALL (NEGATIVE) H 11/15/19 15:21 Urine WBC (Auto) 10 /HPF 11/15/19 15:21 Urine RBC (Auto) 1 /HPF 11/15/19 15:21 Assessment & Plan - Diagnosis (1) Dyspnea Is this a current diagnosis for this admission?: Yes Plan: 24-year-old female with preeclampsia and a 2-week history of dyspnea of unclear etiology. She does have a small left pleural effusion that was noted initially on CTA on 08 November 2019 which can also be seen on today's echocardiogram by my review. Her ejection fraction is preserved and between 50 to 55% with grade 1 diastolic dysfunction and no hemodynamically significant valvular heart disease along with a non-hemodynamically significant pericardial effusion. Given the constellation of small pericardial effusion and left pleural effusion, HF with preserved EF is not completely ruled out however she is absolutely asymptomatic this evening with clear lungs and LE edema that is consonant with her gravid state. Recommendations: -Repeat chest x-ray. -Low sodium diet. -Avoid unnecessary IV fluids. -Continue with observation for now. -If preeclampsia becomes uncontrolled or if the patient becomes symptomatic she should be transferred to a tertiary center. -We will continue to follow with you. -Please call me directly at [phone] with any questions that may arise.
--- NOTE | 2019-11-15 19:42 | RADIOLOGY REPORT (SQ) ---
EXAM DESCRIPTION: CHEST 2 VIEWS IMAGES COMPLETED DATE/TIME: 11/15/2019 7:18 pm REASON FOR STUDY: iup 35 weeks shortness of breath COMPARISON: None. EXAM PARAMETERS: NUMBER OF VIEWS: two views TECHNIQUE: Digital Frontal and Lateral radiographic views of the chest acquired. RADIATION DOSE: NA LIMITATIONS: none FINDINGS: LUNGS AND PLEURA: Very small left pleural effusion. No acute pulmonary consolidation. N o pneumothorax. MEDIASTINUM AND HILAR STRUCTURES: No masses or contour abnormalities. HEART AND VASCULAR STRUCTURES: Cardiomegaly. Pulmonary mild vascular congestion. BONES: No acute findings. HARDWARE: None in the chest. OTHER: The patient is 35 weeks . IMPRESSION: 1. Cardiomegaly and mild pulmonary vascular congestion. 2. Small left pleural effusion. No acute pulmonary consolidation. TECHNICAL DOCUMENTATION: JOB ID: [id number] 2010 [employer]- All Rights Reserved Reading location - IP/workstation name: [email or web address]
[2019-11-15] MEDS ORDERED: FUROSEMIDE INJ/PF 40 MG/4 ML SDV ONE (20:22)
[2019-11-15] MEDS ORDERED: FUROSEMIDE INJ/PF 20 MG/2 ML SDV IV ONE (20:22)
--- NOTE | 2019-11-15 20:25 | Progress Note ---
Provider Note Provider Note: Chest xray demonstrates mild pulmonary edema with cardiomegaly. Given our limited cardiovascular resources at this facilty, it is in her best interest to be transferred to a tertiary medical center. I also recommend she be administered lasix IV 20mg x1 in order to help relieve her vascular congestion. These findings and recommendations were discussed with her OB attending, Dr. Mathis who stated that he is already making arrangements to transfer the patient to [facility].
--- NOTE | 2019-11-15 20:47 | PDOC TRANSFER SUMMARY ---
General Admission Date/PCP: JARRET LÓPEZ MD Admission Date: 11/15/19 Transfer Date: 11/15/19 Accepting Facility: [facility] Accepting Physician: Laurel Resuscitation Status: Full Code - Transfer Diagnosis (1) Pre-eclampsia in third trimester Is this a current diagnosis for this admission?: Yes (2) Pulmonary edema Is this a current diagnosis for this admission?: Yes - Transfer Medications Home Medications: 95/Iron Fum/Folic/Dha [ + Dha Combo Pack] 1 each PO DAILY 11/01/19 Transfer Medications: Current Medications Furosemide (Lasix Inj/Pf 20 Mg/2 Ml Sdv) 20 mg IV NOW ONE Stop: 11/15/19 20:23 - Allergies Allergies/Adverse Reactions: No Known Allergies Allergy (Verified 11/15/19 18:50) Hospital Course Hospital Course: The pt presents with preeclampsia. She is also found to have pulm edema by cardiology. We are treating with 20mg of lasix IV and preparing to transfer to tertiary care center. Physical Exam Vital Signs: Intake & Output 11/14/19 11/15/19 11/16/19 06:59 06:59 06:59 Weight 97.5 kg General appearance: PRESENT: no acute distress, well-developed, well-nourished Head exam: PRESENT: atraumatic, normocephalic Respiratory exam: PRESENT: unlabored Cardiovascular exam: PRESENT: RRR, systolic murmur Pulses: PRESENT: normal dorsalis pedis pul Vascular exam: PRESENT: normal capillary refill Gentrourinary exam: PRESENT: other - 1-2 cm Extremities exam: PRESENT: +2 edema Neurological exam: PRESENT: alert, awake, oriented to person, oriented to place, oriented to time, oriented to situation, CN II-XII grossly intact. ABSENT: motor sensory deficit Psychiatric exam: PRESENT: appropriate affect, normal mood. ABSENT: homicidal ideation, suicidal ideation Results Laboratory Results: 11/15/19 15:30 11/15/19 15:30 11/15/19 11/15/19 11/15/19 15:21 15:30 15:30 WBC 10.2 RBC 4.35 Hgb 13.3 Hct 38.3 MCV 88 MCH 30.5 MCHC 34.6 RDW 14.5 H Plt Count 286 Sodium 133.4 L Potassium 4.2 Chloride 105 Carbon Dioxide 22 Anion Gap 6 BUN 8 Creatinine 0.66 Est GFR ( Amer) > 60 Glucose 81 Uric Acid 4.7 Calcium 9.0 Total Bilirubin 0.3 AST 23 Alkaline Phosphatase 204 H Total Protein 6.0 L Albumin 3.0 L Urine Color YELLOW Urine Appearance CLEAR Urine pH 7.0 Ur Specific [place] 1.015 Urine Protein >=500 H Urine Glucose (UA) NEGATIVE Urine Ketones NEGATIVE Urine Blood NEGATIVE Urine Nitrite NEGATIVE Ur Leukocyte Esterase SMALL H Urine WBC (Auto) 10 Urine RBC (Auto) 1 Impressions: Chest X-Ray 11/15/19 18:47 IMPRESSION: 1. Cardiomegaly and mild pulmonary vascular congestion. 2. Small left pleural effusion. No acute pulmonary consolidation. Plan Discharge Plan: Preeclampsia with pulm edema. Plan lasix 20mg IV and transfer for higher level of care. Time Spent: Greater than 30 Minutes
[2019-11-15] MEDS ORDERED: FUROSEMIDE INJ/PF 40 MG/4 ML SDV IV ONE (21:00)
--- NOTE | 2019-11-15 21:11 | Non Stress Test Report ---
Non Stress Test Datetime Report Generated by CPN: 11/15/2019 21:11 DEMOGRAPHIC EGA NST: 35.1 INDICATION Indication for Study (NST) Other: Pre- E workup MONITORING Monitor Explained: Monitor Explained; Test Explained; Patient Verbalized Understanding Time on Monitor: 11/15/2019 19:25 Time off Monitor: 11/15/2019 21:08 NST Duration: 103 NST INTERVENTIONS NST Interventions: None Physician Notified NST: Dr. Mathis BABY A: [id number] BABY A Movement : Present Contraction Frequency : irritability FHR Baseline : 135 Accelerations : 15X15 Decelerations : None Variability : Moderate 6-25bpm NST Review: Meets Criteria for Reactive NST NST Review and Verified By : D Bellavance RN NST Results: Reactive NST COMMENTS NST Comments: Transfer to [facility] NST REPORT Report Trigger: Send Report
--- NOTE | 2019-12-07 08:59 | PDOC PROGRESS REPORT ---
Subjective-OB Progress Note for:: 12/07/19 Subjective: In response to the query: severe preeclampsia Physical Exam (OB) - Maternal Morbidity 59. Maternal Morbidity (serious complications experinced by the mother associated with labor and delivery: None of the above Objective-Diagnostic Laboratory: 11/15/19 15:30 11/15/19 15:30 Assessment and Plan(PN) - Assessment and Plan (1) Pre-eclampsia in third trimester Is this a current diagnosis for this admission?: Yes (2) Pulmonary edema Qualifiers: Chronicity: acute Qualified Code(s): J81.0 - Acute pulmonary edema Is this a current diagnosis for this admission?: Yes - Time Spent with Patient Time with patient: Less than 15 minutes Critical Time spent with patient: Less than 15 minutes Smoking Education Provided: Other Medications reviewed and adjusted accordingly: No - Disposition Anticipated Discharge Disposition: Tertiary Anticipated Discharge Timeframe: tertiary
== END 2019-11-15 22:38 | disposition home or self-care (01) | DRG 831 ==
LOC: LC 14:57 → LR 16:41 → LC 22:38
PROVIDERS: ADMIT Obstetrics & Gynecology; ATTEND Obstetrics & Gynecology
DX: O14.13 Severe pre-eclampsia, third trimester (principal); J81.0 Acute pulmonary edema; O14.93 Unspecified pre-eclampsia, third trimester; O26.893 Other specified pregnancy related conditions, third trimester; Z3A.35 35 weeks gestation of pregnancy
CPT/HCPCS: 36415; 59025; 71046; 80053; 80307; 81001; 82570; 83615; 84156; 84550; 85027; 93306; 94760; J1940